=== PATIENT | female | born 1980 | race Caucasian/White ===

== ENCOUNTER 2017-03-06 12:09 | Observation (INO) ==
[2017-03-06] MEDS ORDERED: NS 1,000 ML IV ONE (12:29)
[2017-03-06] MEDS ORDERED: ALBUTEROL 2.5mg/3ml (0.083%) NEB AEROSOL PRN (13:00)
[2017-03-06] MEDS: LORazepam 1 MG TABLET PO PRN ×2 (13:19→21:59)
[2017-03-06 13:24] VITALS: BMI 24.8
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
[2017-03-06] MEDS ORDERED: SALINE FLUSH 10ml SYRINGE ONE (14:24)
[2017-03-06] MEDS ORDERED: IOHEXOL 300mg/ml 100ml INJECTION ONE (14:24)
[2017-03-06] MEDS ORDERED: NS 100 ML ONE (14:24)
[2017-03-06] MEDS: OXCARBAZEPINE 150 MG TABLET PO SCH ×2 (14:25→21:59)
[2017-03-06] MEDS: FERROUS SULFATE 324 MG TABLET PO SCH (14:26)
[2017-03-06] MEDS: PredniSONE 10 MG TABLET PO SCH (14:50)
--- NOTE | 2017-03-06 14:57 | CT Scan Report ---
EXAM: CT abdomen pelvis w con DATE: 03/06/2017 12:00 AM ENCOUNTER: Initial INDICATION: abdominal pain and diarrhea for three days, history of cervical cancer COMPARISON: 02/13/2017 TECHNIQUE: CT of the abdomen and pelvis with IV contrast. The patient received 88.8 mL of Omnipaque 300 without complication. Coronal and sagittal reformatted images were performed. The current CT scan was performed using radiation dose-reduction techniques. FINDINGS: Lower Chest: The visualized portions of the lower lungs are well aerated. No focal airspace disease. The heart is normal in size without pericardial effusion. Abdomen: No intraperitoneal free air. No intra-abdominal free fluid or fluid collections. No lymphadenopathy. Liver: The liver enhances homogeneously without focal masses. Gallbladder and biliary: The gallbladder is surgically absent. No biliary ductal dilatation. Spleen: The spleen appears normal. Pancreas: The pancreas demonstrates homogeneous attenuation. Adrenal glands: The adrenal glands are normal in size and attenuation. Kidneys/ureters: The kidneys appear normal. The ureters are normal in course and caliber. GI tract: The stomach, small bowel, and colon appear grossly normal. The appendix is normal. Vascular structures: The aorta is normal in course and caliber. The mesenteric arterial and venous structures appear patent. Pelvis: No pelvic free fluid. No pelvic lymphadenopathy. Bladder: The bladder appears normal. Genital system: Mildly prominent bilateral parametrial venous structures. The uterus and ovaries appear otherwise grossly normal. Skeletal structures and soft tissues: The visualized skeletal structures are grossly normal. IMPRESSION: 1. Mildly prominent bilateral parametrial venous structures, nonspecific, however raising consideration for pelvic congestion syndrome in the appropriate clinical setting. 2. No other acute intra-abdominal/pelvic process by contrast enhanced CT. .
[2017-03-06] MEDS: NS 1,000 ML IV SCH (15:44)
[2017-03-06] MEDS ORDERED: HYDROCODONE/APAP 5mg/325mg TABLET PO PRN (16:03)
[2017-03-06] MEDS: Oxycodone/Apap 10/325 1 TAB PO PRN (20:52)
[2017-03-07] MEDS: NS 1,000 ML IV SCH ×3 (00:02→07:59)
[2017-03-07 00:31] VITALS: PULSE 79
[2017-03-07] MEDS: Oxycodone/Apap 10/325 1 TAB PO PRN ×4 (01:18→13:40)
[2017-03-07] MEDS: LORazepam 1 MG TABLET PO PRN ×2 (06:08→14:33)
[2017-03-07] MEDS: PredniSONE 10 MG TABLET PO SCH (08:00)
[2017-03-07] MEDS: FERROUS SULFATE 324 MG TABLET PO SCH (08:01)
[2017-03-07] MEDS: OXCARBAZEPINE 150 MG TABLET PO SCH (08:01)
[2017-03-07] MEDS ORDERED: CETIRIZINE 10 MG TABLET PO SCH (09:00)
[2017-03-07] MEDS ORDERED: SERTRALINE 100 MG TABLET PO SCH (09:00)
[2017-03-07 09:53] VITALS: BP 131/79; RESP 18; TEMP 98.1; O2SAT 98
[2017-03-07] MEDS ORDERED: ONDANSETRON 4 MG/2 ML INJECTION IVP PRN (12:26)
--- NOTE | 2017-03-07 14:38 | Discharge Instructions ---
Discharge Plan - Med Rec/Dispo Referrals/Follow Up: Xavi Escobedo DO [Physician] - 2 Days [facility] ) Additional Instructions: -TO NURSING. DISCONTINUE ALL LINES, IV'S AND TELEMETRY BEFORE DISCHARGE. -TO NURSING. ONLY DISCHARGE PATIENT AFTER CT HEAD ORDERED NOW IS DONE AND READ. -if any issues worsen and/or new ones occur be seen immediately. -hold your ambien until your done with your ativan. don't use these two together. -hold your sumatriptan until otherwise told. -make sure you're holding your diclofenac cream as well as your meloxicam while on the prednisone. -use 2 forms of control (condoms) for the next 2 months. continue your control as previously ordered. Prescriptions: New Promethazine Tab [Phenergan Tab] 12.5 mg PO Q6HR PRN #40 tablet PRN Reason: Nausea &/or headache Continue Oxycodone/APAP 10/325 [Percocet 10/325] 1 tab PO Q4H PRN PRN Reason: Pain Sertraline HCl [Zoloft] 200 mg PO DAILY OXcarbazepine [Trileptal] 1 tab PO BID Cetirizine [Zyrtec] 1 tab PO HS Albuterol Sulfate [Ventolin Hfa] 1 - 2 puff AEROSOL Q6HPRN PRN #0 PRN Reason: PRN ORDERS Ferrous Sulfate [Iron] 325 mg PO DAILY #0 Norgestimate-Ethinyl Estradiol [Trinessa Tablet] 1 tab PO DAILY #28 LORazepam [Ativan] 1 mg PO TID PRN PRN Reason: Anxiety Cholecalciferol (Vitamin D3) [Vitamin D3] 1 cap PO DAILY Changed PredniSONE [Deltasone] 10 mg PO WB #15 Discontinued Meloxicam 15 mg PO DAILY Diclofenac [Voltaren] 1 applic TP QID PRN PRN Reason: Pain Loratadine [Claritin] 10 mg PO DAILY SUMAtriptan succinate [Sumatriptan Succinate] 100 mg PO DAILY PRN #0 PRN Reason: HEADACHE Triamcinolone 0.1% Cream 15 G [Kenalog] 1 applic TOP DAILY PRN #15 PRN Reason: Prn Orders Zolpidem [Ambien] 10 mg PO HS Discharge Instructions/Outpatient Orders: Final Provider Discharge Instructions Location: Determined By Patient Final Provider Discharge Instructions Location: Determined By Patient - Disposition 01 Discharged Home, Self-Care
[2017-03-07] MEDS ORDERED: PROMETHAZINE 12.5 MG TABLET PO PRN (14:57)
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
--- NOTE | 2017-03-07 16:07 | Discharge Instructions ---
Discharge Plan - Med Rec/Dispo Referrals/Follow Up: Xavi Escobedo DO [Physician] - 2 Days [facility] Favio Instructions: Dehydration (DC) Additional Instructions: -if any issues worsen and/or new ones occur be seen immediately. -hold your ambien until your done with your ativan. don't use these two together. -hold your sumatriptan until otherwise told. -make sure you're holding your diclofenac cream as well as your meloxicam while on the prednisone. -use 2 forms of control (condoms) for the next 2 months. continue your control as previously ordered. Prescriptions: New Promethazine Tab [Phenergan Tab] 12.5 mg PO Q6HR PRN #40 tablet PRN Reason: Nausea &/or headache Continue Oxycodone/APAP 10/325 [Percocet 10/325] 1 tab PO Q4H PRN PRN Reason: Pain Sertraline HCl [Zoloft] 200 mg PO DAILY OXcarbazepine [Trileptal] 1 tab PO BID Cetirizine [Zyrtec] 1 tab PO HS Albuterol Sulfate [Ventolin Hfa] 1 - 2 puff AEROSOL Q6HPRN PRN #0 PRN Reason: PRN ORDERS Ferrous Sulfate [Iron] 325 mg PO DAILY #0 Norgestimate-Ethinyl Estradiol [Trinessa Tablet] 1 tab PO DAILY #28 LORazepam [Ativan] 1 mg PO TID PRN PRN Reason: Anxiety Cholecalciferol (Vitamin D3) [Vitamin D3] 1 cap PO DAILY Changed PredniSONE [Deltasone] 10 mg PO WB #15 Discontinued Meloxicam 15 mg PO DAILY Diclofenac [Voltaren] 1 applic TP QID PRN PRN Reason: Pain Loratadine [Claritin] 10 mg PO DAILY SUMAtriptan succinate [Sumatriptan Succinate] 100 mg PO DAILY PRN #0 PRN Reason: HEADACHE Triamcinolone 0.1% Cream 15 G [Kenalog] 1 applic TOP DAILY PRN #15 PRN Reason: Prn Orders Zolpidem [Ambien] 10 mg PO HS Discharge Instructions/Outpatient Orders: Final Provider Discharge Instructions Location: Determined By Patient Final Provider Discharge Instructions Location: Determined By Patient - Disposition 01 Discharged Home, Self-Care
--- NOTE | 2017-03-07 17:25 | CT Scan Report ---
Indication: headache, lightheadedness PROCEDURE: CT head/brain wo con: Encounter: Initial Comparison: None TECHNIQUE: Axial noncontrasted images the brain utilizing radiation dose reduction techniques. Findings: The attenuation of brain is normal and there is no mass, hemorrhage, or infarction. No extracerebral fluid collections. Visualized paranasal sinuses and mastoid air cells are clear. IMPRESSION: Negative noncontrasted brain CT. .
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
== END 2017-03-07 15:50 | disposition home or self-care (01) ==
LOC: MED
PROVIDERS: ADMIT Internal Medicine; ATTEND Internal Medicine

== ENCOUNTER 2017-09-11 23:29 | Inpatient (IN) ==
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
--- OUTSIDE RECORDS SUMMARY | 2017-09-12 00:40 | External Medical Summary ---
:1980 Author Organization [employer] Care Team Providers Name Role Phone Michelle Castano Provider Role Unavailable Allergies No Known Allergies Problems Problem Type Condition Code Onset Dates Condition Status Problem Generalized anxiety disorder 300.02 Active Problem Other complicated headache syndrome 339.44 Active Problem Nausea with vomiting 787.01 Active Problem Hypothyroidism, unspecified E03.9 Active Problem Generalized anxiety disorder F41.1 Active Problem Unspecified mood [affective] F39 Active disorder Problem Unspecified episodic mood disorder 296.90 Active Problem Mood disorder in conditions 293.83 Active classified elsewhere Problem Other chronic pain G89.29 Active Problem 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
[2017-09-12] MEDS ORDERED: FentaNYL 100 MCG/2 ML INJECTION IVP ONE ×4 (01:44→11:03)
[2017-09-12] MEDS ORDERED: ONDANSETRON 4 MG/2 ML INJECTION IVP ONE (01:44)
[2017-09-12] MEDS ORDERED: IOHEXOL 300mg/ml 100ml INJECTION ONE (02:09)
[2017-09-12] MEDS ORDERED: SALINE FLUSH 10ml SYRINGE ONE (02:10)
[2017-09-12] MEDS: SALINE FLUSH 10ml SYRINGE IVF PRN ×2 (02:13→04:58)
[2017-09-12] MEDS ORDERED: PANTOPRAZOLE 40 MG INJECTION IVP ONE (03:56)
[2017-09-12] MEDS ORDERED: ONDANSETRON 4 MG/2 ML INJECTION IVP PRN (04:33)
[2017-09-12] MEDS ORDERED: HYDROMORPHONE 2 MG/ML INJECTION IVP PRN (04:33)
[2017-09-12 04:46] VITALS: BMI 28.2
[2017-09-12] MEDS: LR 1,000 ML IV SCH ×2 (04:58→13:19)
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
[2017-09-12] MEDS ORDERED: FAMOTIDINE 20 MG TABLET PO SCH (09:00)
[2017-09-12] MEDS: LEVOTHYROXINE 100 MCG TABLET PO SCH ×2 (10:08→11:14)
[2017-09-12] MEDS ORDERED: DICLOFENAC 1% TOP GEL 100gm TP PRN (14:06)
[2017-09-12] MEDS: NS 1,000 ML IV SCH (14:19)
[2017-09-12] MEDS: FentaNYL 100 MCG/2 ML INJECTION IVP PRN ×3 (14:19→21:52)
[2017-09-12] MEDS: HEPARIN SUB-Q 5,000units/0.5ml INJECTION SQ SCH (16:24)
[2017-09-12] MEDS: LORazepam 0.5 MG TABLET PO PRN (16:25)
[2017-09-12 17:53] VITALS: RESP 18
[2017-09-12] MEDS: OXCARBAZEPINE 300 MG TABLET PO SCH (21:51)
[2017-09-13] MEDS: HEPARIN SUB-Q 5,000units/0.5ml INJECTION SQ SCH ×2 (00:35→09:12)
[2017-09-13] MEDS: HYDROCODONE/APAP 10 MG/325 MG TABLET PO PRN ×3 (00:44→10:26)
[2017-09-13] MEDS: NS 1,000 ML IV SCH (02:42)
[2017-09-13] MEDS: LORazepam 0.5 MG TABLET PO PRN (06:11)
[2017-09-13] MEDS ORDERED: LEVOTHYROXINE 100 MCG TABLET PO SCH (06:30)
[2017-09-13] MEDS ORDERED: PANTOPRAZOLE 20 MG TABLET PO SCH (06:30)
[2017-09-13 08:16] VITALS: BP 127/77; PULSE 64; TEMP 96; O2SAT 98
[2017-09-13] MEDS ORDERED: CYANOCOBALAMIN (B-12) 500mcg TABLET PO SCH (09:00)
[2017-09-13] MEDS ORDERED: SERTRALINE 100 MG TABLET PO SCH (09:00)
[2017-09-13] MEDS: OXCARBAZEPINE 300 MG TABLET PO SCH (09:12)
--- NOTE | 2017-09-13 09:33 | CT Scan Report ---
Indication: epigastric pain PROCEDURE: CT abdomen pelvis w con: Encounter: Initial Comparison: None Technique: Axial CT images were performed through the abdomen and pelvis after the administration of intravenous contrast. Coronal and sagittal two-dimensional reformats. Automated Exposure Control and Iterative Reconstruction dose reducing techniques were utilized. Contrast: Omnipaque 300 100 mL Findings: The lung bases are clear. The liver is normal. The gallbladder is surgically absent. Wall thickening of the stomach antrum. The spleen, pancreas, adrenal glands and kidneys are normal. No abdominal or pelvic adenopathy. Bladder is normal. Uterus and ovaries are normal. No free fluid. No evidence of a bowel obstruction. The appendix is normal. Bone windows show no acute findings. Impression: Focal thickening of the stomach antrum could represent gastritis or early ulcer disease. Otherwise, no acute disease process seen. There is a preliminary report by [employer]. .
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
== END 2017-09-13 14:35 | disposition home or self-care (01) | DRG 440 ==
LOC: ED 23:29 → MED 09-12 04:02
PROVIDERS: ADMIT Hospitalist; ATTEND Internal Medicine Cardiovascular Disease